=== PATIENT | female | born 1940 | race Caucasian/White ===

== ENCOUNTER 2022-03-29 16:48 | Inpatient (IN) | payer BC ==
[~2022-03-29] VITALS: Ht 160 cm; Wt 59.1 kg
--- NOTE | 2022-03-29 16:48 | NUR ---
Patient is AOx4 but unable to recall her regular home medicines (the names & dosages)@this time." My niece is coming and she knows all of it." per patient.
--- NOTE | 2022-03-29 16:50 | NUR ---
Patient seen by . [facility] to transfer pt. to [facility].
[2022-03-29] MEDS ORDERED: PIPERACILLIN SODIUM/TAZOBACTAM 3.375 G in IV DEXTROSE 5% 50 ML IV ONE (17:00)
[2022-03-29] MEDS ORDERED: VANCOMYCIN IV 1,000 MG in IV DEXTROSE 5% 250 ML IV ONE (17:00)
--- NOTE | 2022-03-29 17:21 | NUR ---
"Plan to admit" per Dr Webb Nursing polymerization supervisor Shilo and ER registration staff Jayda notified
[2022-03-29] MEDS ORDERED: VANCOMYCIN IV 200 ML ONE (17:25)
[2022-03-29] MEDS ORDERED: PIPERACILLIN/TAZOBACTAM/D5W 50 ML IV ONE (17:25)
[2022-03-29 17:30] LABS: HEMATOCRIT 41.3 % (31.2-41.9); MEAN CORPUSCULAR HEMOGLOBIN 28.4 uug (24.7-32.8); PLATELET COUNT (AUTO) 251 K/uL (179-408)
--- NOTE | 2022-03-29 17:31 | NUR ---
Patient taken down to CT procedure.
--- NOTE | 2022-03-29 17:45 | NUR ---
Patient back from CT abdomen. As per pt. will be admitted as med-surge pt. under diagnosis of Cellulitis. Addendum: 03/29/22 at 1825 by KALANI Patient left off monitor (as medsurge pt.)
[2022-03-29] MEDS ORDERED: FURO-151 PO (18:12)
[2022-03-29] MEDS ORDERED: GABA-532 PO (18:12)
[2022-03-29] MEDS ORDERED: LETR2.5T PO (18:12)
[2022-03-29] MEDS ORDERED: HYDR-4385 PO (18:16)
[2022-03-29] MEDS ORDERED: POTA10CA43 PO (18:16)
[2022-03-29] MEDS ORDERED: CYPR4TAB44 PO (18:16)
--- NOTE | 2022-03-29 18:16 | NUR ---
Patient's niece called and gave patient's pertinent medical history ("breast cancer about 25 years now", DVT, hypertension, sacral fractures on 3 "places"). Pertinent surgical history includes previous 2 hip replacements, knee replacement and cervical neck fusion. The niece also gave names of the home medications. Patient's Losartan was discontinued by primary doctor about 2-3 weeks ago as reported by patient's niece. Dr Webb notified.
[2022-03-29 18:18] LABS: CARBON DIOXIDE 34 mmol/L (21-32); CHLORIDE 102 mmol/L (98-107); CREATININE 1.1 mg/dL (0.6-1.3); GLUCOSE 107 mg/dL (74-106); POTASSIUM 3.5 mmol/L (3.5-5.1); UREA NITROGEN, BLOOD 25 mg/dL (7-18)
[2022-03-29 18:31] LABS: ALANINE AMINOTRANSFERASE 26 U/L (14-59); ALKALINE PHOSPHATASE 106 U/L (50-136); ASPARTATE AMINOTRANSFERASE 19 U/L (15-37); BILIRUBIN,DIRECT 0.1 mg/dL (0.0-0.2); BILIRUBIN,TOTAL 0.2 mg/dL (0.2-1.0); TOTAL PROTEIN, SERUM 7.7 g/dL (6.4-8.2)
--- NOTE | 2022-03-29 18:37 | NUR ---
Doppler negative as reported by US tech.
--- NOTE | 2022-03-29 19:10 | NUR ---
Bedside report given to Darling Dickerson. she was informed that pt. has a bed assigned and needs to complete transfer requirements.
[2022-03-29] MEDS ORDERED: MAGNESIUM HYDROXIDE 30 ML LIQUID UDC PO PRN (21:30)
[2022-03-29] MEDS ORDERED: ONDANSETRON 4 MG/2 ML VIAL IV PRN (21:30)
[2022-03-29] MEDS ORDERED: TEMAZEPAM 15 MG CAPSULE PO PRN (21:30)
[2022-03-29] MEDS ORDERED: ENALAPRILAT DIHYDRATE 1.25 MG/1 ML VIAL IV PRN (21:30)
[2022-03-29] MEDS ORDERED: ACETAMINOPHEN 325 MG TABLET PO PRN (21:30)
--- NOTE | 2022-03-29 23:25 | NUR ---
GAVE REPORT TO
[2022-03-30 00:25] VITALS: BP 142/67
--- NOTE | 2022-03-30 00:25 | NUR ---
Admitted a 82 years old female with Dx of Cellulitis and Poss. acute heart failure. Patient AAOx3. In no apparent distress. Denies any pain or SOB. IV site on right FA intact and patent. NSR on tele with HR of 72/min. Bilateral LE reddened/pinkish in appearance with some whitish to brownish scabs present. Pitting edema 4+ on bilateral LE. Routine admission care done. Plan of care initiated. Safety measure initiated and call light within reached.
--- NOTE | 2022-03-30 00:28 | NUR ---
Pt. admitted to TELE , under care of Dr. Butcher Dx: cellulitis. Belongs List completed
[2022-03-30] MEDS ORDERED: PIPERACILLIN SODIUM/TAZOBACTAM 3.375 G in IV DEXTROSE 5% 50 ML IV ONE (02:00)
[2022-03-30] MEDS ORDERED: PIPERACILLIN/TAZOBACTAM/D5W 50 ML IV ONE (02:10)
--- NOTE | 2022-03-30 02:17 | NUR ---
Telephone call to Pharmacy, spoke to Tina regarding order for Zosyn, since pt is allergic to Penicillin. Patient already had a dose of Zosyn at the ER with no adverse reaction reported. Per Tina chahal to give Zosyn.
[2022-03-30 04:00] VITALS: BP 144/81
--- NOTE | 2022-03-30 05:58 | NUR ---
No adverse reaction noted from IV antibiotic. NSR on tele with HR of 76/min. Needs attended to and met. Safety measure maintained and call light within reached.
[2022-03-30] MEDS: PANTOPRAZOLE SODIUM 40 MG TABLET.DR PO SCH (06:05)
[2022-03-30] MEDS: HYDROCODONE/APAP 5-325MG TABLET PO PRN ×2 (06:13→20:52)
[2022-03-30 06:32] LABS: HEMATOCRIT 36.7 % (31.2-41.9); MEAN CORPUSCULAR HEMOGLOBIN 28.5 uug (24.7-32.8); MEAN CORPUSCULAR VOLUME 86.1 fL (75.5-95.3); PLATELET COUNT (AUTO) 240 K/uL (179-408)
[2022-03-30 06:51] LABS: THYROID STIMULATING HORMONE 0.893 mIU/mL (0.358-3.740)
[2022-03-30 07:35] LABS: CARBON DIOXIDE 29 mmol/L (21-32); CHLORIDE 101 mmol/L (98-107); CHOLESTEROL 191 mg/dL (<200); CREATININE 1.1 mg/dL (0.6-1.3); GLUCOSE 99 mg/dL (74-106); HDL CHOLESTEROL 71 mg/dL (40-60); PHOSPHOROUS 3.6 mg/dL (2.5-4.9); POTASSIUM 3.3 mmol/L (3.5-5.1); TRIGLYCERIDES 86 MG/DL (30-150); UREA NITROGEN, BLOOD 21 mg/dL (7-18)
--- NOTE | 2022-03-30 08:00 | NUR ---
AWAKE ALERT AND VERBALLY RESPONSIVE, FORGETFUL AND TRIED TO GET OUT OF BED WITHOUT CALLING NURSE. CALL LIGHT WITH IN REACH AT ALL TIMES AND CLOSELY MONITORED. REALITY ORIENTATION GIVEN. SR ON MONITOR
[2022-03-30] MEDS: FUROSEMIDE 40 MG TABLET PO SCH (08:10)
[2022-03-30] MEDS: GABAPENTIN 100 MG CAPSULE PO SCH ×3 (08:10→17:57)
[2022-03-30] MEDS: ACIDOPHILUS/BULGARICUS CHEW TAB PO SCH ×2 (08:10→20:31)
[2022-03-30] MEDS: POTASSIUM CHLORIDE 10 MEQ TAB.PRT.SR PO SCH (08:10)
[2022-03-30] MEDS ORDERED: Medication Not On Formulary EA (Letrozole (Femara) 2.5 MG) PO SCH (09:00)
[2022-03-30] MEDS ORDERED: POTASSIUM CHLORIDE 10 MEQ TAB.PRT.SR PO ONE (10:00)
[2022-03-30] MEDS ORDERED: PIPERACILLIN SODIUM/TAZOBACTAM 3.375 G in IV DEXTROSE 5% 50 ML IV SCH (10:00)
[2022-03-30 11:33] VITALS: BP 145/69
--- NOTE | 2022-03-30 12:00 | NUR ---
PATIENT SEEN BY PHYSICAL THERAPIST FOR EVAL PATIENT ABLE TO WALK WITH FWW FROM BED TO HER DOOR AND BACK WITH MIN/MOD ASSIST SEE NOTES
[2022-03-30] MEDS: CEFAZOLIN 2 G in IV DEXTROSE 5% 100 ML IV SCH ×2 (14:46→22:16)
--- NOTE | 2022-03-30 15:58 | NUR ---
Social work consult was requested to assess patients living situation. Patient is 82-year-old female admitted to the hospital for cellulitis. Upon social work faculty member assessment, patient is alert and oriented X4. Patient presents with euthymic mood and full range of affect. Patient presents with good judgement and insight. Patient lives alone in a town house at [address] [place] [id number]. Patient stated she has home health services with [facility] [address], [place] [address] ([phone]). SW explored patients support system. Patients primary mailroom personnel is her nieceShyla, ([phone]) and they have a good relationship. Patient is currently retired. SW explored history of substance abuse. Patient denied a history of substance abuse. There is no toxicology report. SW explored history of psychiatric diagnosis. Patient denied a psychiatric diagnosis. Patient denies suicidal or homicidal ideation. Patient has a walker at home and is currently driving. SW explored patients discharge plan. Patient states her nieceShyla ([phone]) will drive her home at discharge.
[2022-03-30 16:00] VITALS: BP 161/67
[2022-03-30] MEDS ORDERED: CYPROHEPTADINE 4 MG PO SCH (17:00)
[2022-03-30] MEDS ORDERED: [UNRECOGNIZED DRUG - OTHER] PO SCH (17:00)
[2022-03-30] MEDS ORDERED: VANCOMYCIN IV 750 MG in IV DEXTROSE 5% 250 ML IV SCH (17:00)
--- NOTE | 2022-03-30 18:30 | NUR ---
CONTINUE IV ANTIBIOTIC ORDERED NO ADVERSE REACTION NOTED
[2022-03-30 20:00] VITALS: BP 151/74
[2022-03-30] MEDS: DOCUSATE SODIUM 100 MG CAPSULE PO SCH (20:31)
[2022-03-31] VITALS: BP 159/80
[2022-03-31 04:00] VITALS: BP 163/94
[2022-03-31] MEDS: CEFAZOLIN 2 G in IV DEXTROSE 5% 100 ML IV SCH ×3 (05:14→21:04)
[2022-03-31] MEDS: PANTOPRAZOLE SODIUM 40 MG TABLET.DR PO SCH (06:12)
[2022-03-31 06:58] LABS: HEMATOCRIT 39.7 % (31.2-41.9); MEAN CORPUSCULAR HEMOGLOBIN 28.5 uug (24.7-32.8); MEAN CORPUSCULAR VOLUME 87.1 fL (75.5-95.3); PLATELET COUNT (AUTO) 264 K/uL (179-408)
[2022-03-31 07:54] LABS: ALANINE AMINOTRANSFERASE 25 U/L (14-59); ALKALINE PHOSPHATASE 100 U/L (50-136); ASPARTATE AMINOTRANSFERASE 22 U/L (15-37); BILIRUBIN,TOTAL 0.3 mg/dL (0.2-1.0); CARBON DIOXIDE 33 mmol/L (21-32); CHLORIDE 101 mmol/L (98-107); CREATININE 1.1 mg/dL (0.6-1.3); GLUCOSE 105 mg/dL (74-106); MAGNESIUM 1.9 mg/dL (1.8-2.4); PHOSPHOROUS 3.8 mg/dL (2.5-4.9); POTASSIUM 3.4 mmol/L (3.5-5.1); TOTAL PROTEIN, SERUM 7.6 g/dL (6.4-8.2); UREA NITROGEN, BLOOD 21 mg/dL (7-18)
--- NOTE | 2022-03-31 08:00 | NUR ---
AWAKE ALERT AND VERBALLY RESPONSIVE, NOTED WITH ON AND OFF CONFUSION TO PLACE AND TIME. REALITY ORIENTATION GIVEN. SEEN BY PHYSICAL THERAPIST SEE NOTES
[2022-03-31] MEDS: ACIDOPHILUS/BULGARICUS CHEW TAB PO SCH ×2 (08:25→20:24)
[2022-03-31] MEDS: FUROSEMIDE 40 MG TABLET PO SCH (08:25)
[2022-03-31] MEDS: POTASSIUM CHLORIDE 10 MEQ TAB.PRT.SR PO SCH (08:25)
[2022-03-31] MEDS: GABAPENTIN 100 MG CAPSULE PO SCH ×3 (08:25→17:28)
--- NOTE | 2022-03-31 08:49 | NUR ---
WOUND CARE CONSULT: PT PRESENTS WITH REDNESS AND CRUSTS TO LOWER LEGS, PRESENT ON ADMISSION. DR VIDAL NOTIFIED OF DPM CONSULT REQUEST. IN AGREEMENT WITH PLAN OF CARE. CURRENT LIA SCORE IS 18.
[2022-03-31] MEDS ORDERED: REMEDY ESSENTIAL ZINC PASTE 113 GM TOP PRN (09:00)
[2022-03-31] MEDS ORDERED: LETROZOLE 2.5 MG PO SCH (09:00)
[2022-03-31] MEDS ORDERED: [UNRECOGNIZED DRUG - OTHER] PO SCH (09:00)
--- NOTE | 2022-03-31 09:17 | NUR ---
SW made a APS report for patient regarding suspicion of self-neglect. Intake ID [id number]. CORNELL placed a copy of printed report in chart.
[2022-03-31] MEDS ORDERED: POTASSIUM CHLORIDE 20 MEQ TAB.PRT.SR PO ONE (10:00)
--- NOTE | 2022-03-31 12:00 | NUR ---
SEEN BY HOSPITALIST PLAN DISCHARGE TO SNF TODAY FOR CONTINUITY OF CARE
[2022-03-31 12:02] VITALS: BP 137/83
[2022-03-31] MEDS ORDERED: ATOR10TA PO (15:25)
[2022-03-31] MEDS ORDERED: OLME20TA13 PO (15:25)
[2022-03-31] MEDS ORDERED: DOXY-326 PO (15:25)
[2022-03-31] MEDS ORDERED: CEPH250C PO (15:25)
[2022-03-31 16:21] VITALS: BP 142/81
[2022-03-31] MEDS: HYDROCODONE/APAP 5-325MG TABLET PO PRN (17:29)
--- NOTE | 2022-03-31 18:14 | NUR ---
PATIENT REMAINS ON IV ANTIBIOTIC, AWAITING PLACEMENT AUTHORIZATION FOR SNF. NIECE CAME IN UPDATED WITH DISCHARGE PLAN
--- NOTE | 2022-03-31 19:30 | NUR ---
Received patient lying in bed. Asleep, arouse to touch. AOx3. In no apparent distress. Denies any pain or SOB at this time. NSR on tele with HR of 79/min. IV site on right FA intact and patent. BLE still edematous and red/pink in appearance. Needs assessed and attended to. Safety measure initiated and call light within reached.
[2022-03-31 20:00] VITALS: BP 134/81
[2022-03-31] MEDS: DOCUSATE SODIUM 100 MG CAPSULE PO SCH (20:24)
[2022-03-31] MEDS ORDERED: ATORVASTATIN 10 MG TABLET PO SCH (21:00)
[2022-04-01] VITALS: BP 124/69
[2022-04-01 04:29] LABS: *BILIRUBIN,URIN NEGATIVE (NEGATIVE); *BLOOD, URINE NEGATIVE (NEGATIVE); *CLARITY,URINE CLEAR (CLEAR); *COLOR,URINE YELLOW (YELLOW); *KETONES,URINE NEGATIVE (NEGATIVE); *UROBILINOGEN,URINE 0.2 E.U./dl (NORMAL); LEUKOCYTE ESTERASE ,URINE NEGATIVE (NEGATIVE); NITRITE, URINE NEGATIVE (NEGATIVE); UGLUCOSE NEGATIVE (NEGATIVE)
[2022-04-01 04:37] VITALS: BP 161/80
[2022-04-01] MEDS: CEFAZOLIN 2 G in IV DEXTROSE 5% 100 ML IV SCH ×2 (05:02→13:58)
--- NOTE | 2022-04-01 05:23 | NUR ---
Slept through out the night. No complain of pain or SOB. NSR on tele with HR of 69/min. No adverse effect noted from IV antibiotic. Needs attended to and met. Safety measure maintained and call light within reached.
[2022-04-01] MEDS: PANTOPRAZOLE SODIUM 40 MG TABLET.DR PO SCH (06:02)
[2022-04-01 06:56] LABS: CREATININE 1.3 mg/dL (0.6-1.3); POTASSIUM 3.4 mmol/L (3.5-5.1)
[2022-04-01] MEDS: POTASSIUM CHLORIDE 10 MEQ TAB.PRT.SR PO SCH (08:49)
[2022-04-01] MEDS: GABAPENTIN 100 MG CAPSULE PO SCH ×3 (08:49→17:52)
[2022-04-01] MEDS: ACIDOPHILUS/BULGARICUS CHEW TAB PO SCH (08:50)
[2022-04-01] MEDS: FUROSEMIDE 40 MG TABLET PO SCH (08:50)
[2022-04-01] MEDS: HYDROCODONE/APAP 5-325MG TABLET PO PRN ×3 (08:50→17:52)
[2022-04-01] MEDS ORDERED: POTASSIUM CHLORIDE 20 MEQ TAB.PRT.SR PO ONE (11:00)
[2022-04-01 12:00] VITALS: BP 141/80
[2022-04-01 16:00] VITALS: BP 144/80
--- NOTE | 2022-04-01 18:27 | NUR ---
DISCHARGED TO [facility] VIA AMBULANCE WITH KAIT[facility]. REPORT GIVEN TO BRAYDEN
[2022-04-02 07:06] LABS: A/G RATIO 0.7 (0.7-1.7); ALBUMIN 2.8 g/dL (2.9-4.4); ALPHA-1-GLOBULIN 0.4 g/dL (0.0-0.4); BETA GLOBULIN 1.5 g/dL (0.7-1.3); GAMMA GLOBULIN 1.3 g/dL (0.4-1.8); GLOBULIN, TOTAL 4.2 g/dL (2.2-3.9); M-SPIKE Not Observed g/dL (Not Observed)
== END 2022-04-01 18:53 | DRG 602 ==
LOC: ER 16:51 → TELE3 23:47
PROVIDERS: ADMIT Internal Medicine; ATTEND Nurse Practitioner Acute Care
DX: L03.116 Cellulitis of left lower limb (principal); I50.33 Acute on chronic diastolic (congestive) heart failure; N17.0 Acute kidney failure with tubular necrosis; D68.69 Other thrombophilia; L03.115 Cellulitis of right lower limb; Z74.09 Other reduced mobility; I11.0 Hypertensive heart disease with heart failure; E78.5 Hyperlipidemia, unspecified; G62.9 Polyneuropathy, unspecified; E87.6 Hypokalemia; K44.9 Diaphragmatic hernia without obstruction or gangrene; M19.90 Unspecified osteoarthritis, unspecified site; Z20.822 Contact with and (suspected) exposure to COVID-19; Z90.13 Acquired absence of bilateral breasts and nipples; Z96.643 Presence of artificial hip joint, bilateral; Z86.718 Personal history of other venous thrombosis and embolism; Z85.3 Personal history of malignant neoplasm of breast; Z88.0 Allergy status to penicillin; Z88.2 Allergy status to sulfonamides; I87.2 Venous insufficiency (chronic) (peripheral); M79.662 Pain in left lower leg; M79.661 Pain in right lower leg; Z96.653 Presence of artificial knee joint, bilateral
CPT/HCPCS: 36415; 71045; 83605; 83735; 84100; 84155; 84165; 84443; 84484; 85025; 85730; 86803; 86850; 86900; 86901; 87040; 87086; 87806; 93005; 93307; 97161; A4663; C1758; G0378; J0690; J2543; J3370; J7050